=== PATIENT | female | born 1960 | race Caucasian/White ===

== ENCOUNTER 2021-03-03 14:43 | Emergency (ER) | payer OTHER ==
[~2021-03-03 14:43] MED LIST: BUSPAR5 MG PO; FLEXERIL10 MG PO; GABAPENTIN300 MG PO; GABAPENTIN400 MG PO; HYDROCODON-ACE1 EAC6 PO; LEXAPRO20 MG PO; NEURONTIN300 MG PO; OS-CAL500 MG PO; PREDNISONE 20MG20 MG PO; PRINIVIL20 MG PO; PROTONIX 40MG T40 MG PO; SINGULAIR10 MG PO; SYNTHROID PO; VENTOLIN HFA18 GM INH; VIBRAMYCIN100 MG PO; VICODIN 10/3251 EACH PO
[2021-03-03 16:42] LABS: BASOPHIL 0.4 % (0-2); EOSINOPHIL 0.4 % (0-5); HCT 47.5 % (37.0-47.0); HGB 16.4 g/dl (12.5-16.0); LYMPHOCYTE 22.1 % (15-48); MCH 33.5 pg (25.0-31.0); MCHC 34.5 g/dL (32.0-36.0); MCV 96.9 fL (78.0-100.0); MONOCYTE 10.4 % (0-12); MPV 8.9 fL (6.0-9.5); NEUTROPHIL 66.4 % (41-80); NRBC 0; PLT 324 K/uL (150-400); RDW 14.1 % (11.5-14.0); WBC 7.6 K/uL (4.0-10.5)
[2021-03-03 16:50] LABS: INR 0.96 (0.9-1.2); PROTHROMBIN TIME 12.1 SECONDS (11.4-13.6); PTT 25.6 SECONDS (22.2-34.7)
[2021-03-03 16:55] LABS: ALBUMIN 3.3 g/dL (3.4-5.0); BILIRUBIN - TOTAL 0.5 mg/dL (0.2-1.0); BUN/CREAT RATIO (CALC) 20.3 RATIO; CREATININE 0.69 mg/dL (0.51-0.95); GLOBULIN (CALCULATION) 3.2 g/dL; POTASSIUM 3.8 mmol/L (3.5-5.1); TOTAL PROTEIN 6.5 g/dL (6.4-8.2)
[2021-03-03] MEDS ORDERED: AZITHROMYCIN250 MG PO (17:45)
[2021-03-03] MEDS ORDERED: NAPROXEN500 MG PO (17:45)
[2021-03-09] MEDS ORDERED: GABAPENTIN300 MG PO (11:40)
[2021-03-15] MEDS ORDERED: HYDROCODON-ACE1 EAC6 PO (14:46)
[2021-05-10] MEDS ORDERED: HYDROCODON-ACE1 EAC6 PO (12:54)
[2021-07-06] MEDS ORDERED: HYDROCODON-ACE1 EAC6 PO (12:48)
== END 2021-03-03 18:10 | disposition home or self-care (01) ==
LOC: FER 14:43
PROVIDERS: Emergency Medicine
DX: G56.31 Lesion of radial nerve, right upper limb (principal); J18.9 Pneumonia, unspecified organism; I10 Essential (primary) hypertension; J44.9 Chronic obstructive pulmonary disease, unspecified; F17.210 Nicotine dependence, cigarettes, uncomplicated
CPT/HCPCS: 36415; 70450; 71045; 80053; 85025; 85610; 85730; 93005

== ENCOUNTER 2021-12-25 13:31 | Day surgery (SDCO) | payer OTHER ==
[~2021-12-25] VITALS: Ht 162.6 cm; Wt 48.7 kg
[~2021-12-25 13:31] MED LIST changes: +AZITHROMYCIN250 MG PO; +NAPROXEN500 MG PO
[2021-12-25 14:40] LABS: BASOPHIL 0.4 % (0-2); EOSINOPHIL 0.5 % (0-5); HCT 35.1 % (37.0-47.0); HGB 12.1 g/dl (12.5-16.0); LYMPHOCYTE 14.7 % (15-48); MCHC 34.5 g/dL (32.0-36.0); MCV 95.6 fL (78.0-100.0); MONOCYTE 15.1 % (0-12); MPV 9.6 fL (6.0-9.5); NEUTROPHIL 68.9 % (41-80); NRBC 0; PLT 247 K/uL (150-400); RBC 3.67 M/uL (4.20-5.40); RDW 13.5 % (11.5-14.0); WBC 7.8 K/uL (4.0-10.5)
[2021-12-25 14:58] LABS: BILIRUBIN NEGATIVE (NEGATIVE); BLOOD 3+ Ery/uL (NEGATIVE); GLUCOSE (U) NORMAL (NORMAL); LEUKOCYTES 1+ Leu/uL (NEGATIVE); NITRITE POSITIVE (NEGATIVE); PROTEIN 3+ mg/dL (NEGATIVE); UROBILINOGEN 0.2 mg/dL (0.2-1.0); pH 6.5 (5.0-9.0)
[2021-12-25 14:59] LABS: ALBUMIN 2.9 g/dL (3.4-5.0); BILIRUBIN - TOTAL 0.7 mg/dL (0.2-1.0); BUN/CREAT RATIO (CALC) 16.5 RATIO; CLARITY CLOUDY (CLEAR); COLOR RED (YELLOW); CREATININE 0.85 mg/dL (0.51-0.95); GLOBULIN (CALCULATION) 3.5 g/dL; POTASSIUM 4.7 mmol/L (3.5-5.1); TOTAL PROTEIN 6.4 g/dL (6.4-8.2)
[2021-12-25 15:02] LABS: URINARY RBC TNTC
[2021-12-25 15:17] LABS: PROTHROMBIN TIME > 120 SECONDS (11.8-13.4)
[2021-12-25 15:18] LABS: INR > 17.0 (0.9-1.2); PTT > 180 SECONDS (24.4-34.7)
[2021-12-25] MEDS ORDERED: JANTOVEN2 MG PO (15:28)
[2021-12-25] MEDS ORDERED: NORVASC5 MG PO (15:29)
[2021-12-25] MEDS ORDERED: PROPRANOLOL HCL20 MG PO (15:31)
[2021-12-25] MEDS ORDERED: BUSPAR5 MG PO (15:32)
[2021-12-25] MEDS ORDERED: PRAVACHOL20 MG PO (15:33)
[2021-12-25] MEDS ORDERED: HABITROL7 MG TOP (18:02)
[2021-12-26 06:23] LABS: HCT 32.7 % (37.0-47.0); HGB 10.9 g/dl (12.5-16.0); MCH 32.7 pg (25.0-31.0); MCHC 33.3 g/dL (32.0-36.0); MCV 98.2 fL (78.0-100.0); MPV 9.7 fL (6.0-9.5); RBC 3.33 M/uL (4.20-5.40); RDW 13.8 % (11.5-14.0); WBC 5.9 K/uL (4.0-10.5)
[2021-12-26 06:49] LABS: BUN/CREAT RATIO (CALC) 18.5 RATIO; CREATININE 0.92 mg/dL (0.51-0.95); POTASSIUM 4.1 mmol/L (3.5-5.1)
[2021-12-26 10:58] LABS: INR 1.37 (0.9-1.2); PROTHROMBIN TIME 16.2 SECONDS (11.8-13.4)
--- NOTE | 2021-12-26 11:02 | NUR ---
12/26/21 Please consider full admit or discharge. Thank You.
[2021-12-26] MEDS ORDERED: MACROBID100 MG PO (14:09)
[2021-12-26] MEDS ORDERED: GABAPENTIN400 MG PO (14:14)
[2021-12-28] MEDS ORDERED: HYDROCODON-ACE1 EAC6 PO (12:01)
== END 2021-12-26 15:20 | disposition home or self-care (01) ==
LOC: FER 13:31 → FMS 15:25
PROVIDERS: Nurse Practitioner Acute Care; Physician Assistant; ADMIT Family Medicine
DX: T45.511A Poisoning by anticoagulants, accidental (unintentional), initial encounter (principal); D68.69 Other thrombophilia; R04.0 Epistaxis; D68.32 Hemorrhagic disorder due to extrinsic circulating anticoagulants; R31.9 Hematuria, unspecified; E87.1 Hypo-osmolality and hyponatremia; N39.0 Urinary tract infection, site not specified; J44.9 Chronic obstructive pulmonary disease, unspecified; J96.10 Chronic respiratory failure, unspecified whether with hypoxia or hypercapnia; I10 Essential (primary) hypertension; I26.99 Other pulmonary embolism without acute cor pulmonale; M51.36 Other intervertebral disc degeneration, lumbar region; G47.33 Obstructive sleep apnea (adult) (pediatric); F17.210 Nicotine dependence, cigarettes, uncomplicated; Z79.01 Long term (current) use of anticoagulants; Z99.81 Dependence on supplemental oxygen; Z90.710 Acquired absence of both cervix and uterus; Z95.812 Presence of fully implantable artificial heart; Z20.822 Contact with and (suspected) exposure to COVID-19
CPT/HCPCS: 36415; 80048; 80053; 81001; 85025; 85610; 85730; 87088; 94762; 99284; G0378; J0696; J3430; J7040; U0002